=== PATIENT | male | born 1955 | race Caucasian/White ===

== ENCOUNTER 2018-10-08 11:26 | Inpatient (IN) | payer MEDICAID, OTHER ==
[~2018-10-08] VITALS: Ht 175.3 cm; Wt 58.8 kg
[~2018-10-08 11:26] MED LIST: ALBU8HFA4 IH; BECL8.7A7 IH; RISP2 PO
[2018-10-08] MEDS ORDERED: SODIUM CHLORIDE 0.9% 1,000 ML IV ONE (12:00)
[2018-10-08 12:13] LABS: BASOPHILS % (AUTO) 2.4 % (0.0-2.0); EOSINOPHILS % (AUTO) 3.3 % (1.0-6.0); HEMATOCRIT 30.3 % (41-53); HEMOGLOBIN 9.3 g/dL (13.5-17.5); LYMPHOCYTES # (AUTO) 0.8 K/uL (1.0-4.8); LYMPHOCYTES % (AUTO) 17.7 % (22.0-44.0); MEAN CORPUSCULAR HGB CONC 30.6 G/dL (31.0-37.0); MEAN CORPUSCULAR VOLUME 75 fL (80-100); MONOCYTES # (AUTO) 0.4 K/uL (0.1-1.0); MONOCYTES % (AUTO) 8.5 % (2.0-9.0); NEUTROPHILS # (AUTO) 3.2 K/uL (1.8-7.7); NEUTROPHILS % (AUTO) 68.1 % (40.0-70.0); PLATELET COUNT (AUTO) 391 K/uL (150-450); RED BLOOD CELL COUNT(AUTO) 4.02 MIL/uL (4.50-5.90); RED CELL DISTRIBUTION WIDTH 32.9 % (11.5-14.5)
[2018-10-08 12:24] LABS: ANION GAP 11 mmol/L (8-16); CALCIUM, TOTAL 8.6 mg/dL (8.8-10.5); CARBON DIOXIDE 24 mmol/L (22-29); CHLORIDE 103 mmol/L (98-107); CREATININE 0.69 mg/dL (0.60-1.30); GLOMERULAR FILTR. RATE CALC > 60 mL/min (>60); GLUCOSE,RANDOM 98 mg/dL (70-110); POTASSIUM 3.6 mmol/L (3.5-5.1); SODIUM SERUM 138 mmol/L (136-145); UREA NITROGEN, BLOOD 13 mg/dL (7-18)
[2018-10-08 13:01] LABS: PLATELET MORPHOLOGY COMMENT LARGE PLTS PRESENT
[2018-10-08] MEDS ORDERED: PANTOPRAZOLE SODIUM 40 MG/VIAL IVP ONE (13:30)
[2018-10-08 13:45] LABS: ALANINE AMINOTRANSFERASE 46 U/L (12-78); ALBUMIN 2.8 g/dL (3.4-5.0); ALKALINE PHOSPHATASE 82 U/L (46-116); ASPARTATE AMINOTRANSFERASE 59 U/L (15-37); BILIRUBIN,TOTAL 0.3 mg/dL (0.1-1.0); TOTAL PROTEIN, SERUM 7.3 g/dL (6.4-8.2)
[2018-10-08 13:45] LABS: PROTHROMBIN TIME 10.4 SEC (9.4-11.6)
[2018-10-08] MEDS ORDERED: MORPHINE SULFATE 2 MG/ML SYRINGE IVP PRN (13:45)
[2018-10-08] MEDS ORDERED: MAGNESIUM HYDROXIDE SUSPENSION 30 ML UDCUP PO PRN (13:45)
[2018-10-08] MEDS ORDERED: MAGNESIUM SULFATE 2 GM, MVI, ADULT NO.1 WITH VIT K 10 ML, THIAMINE HCL 100 MG, FOLIC AC... IV ONE ×5 (13:45)
[2018-10-08] MEDS ORDERED: HYDROCODONE/ACETAMINOPHEN 5-325 MG TABLET PO PRN (13:45)
[2018-10-08] MEDS ORDERED: ALBUTEROL SULFATE 2.5 MG/0.5 ML NEB SOLUTION NEB PRN (13:45)
[2018-10-08] MEDS ORDERED: ZOLPIDEM TARTRATE 5 MG TABLET PO PRN (13:45)
[2018-10-08] MEDS ORDERED: ONDANSETRON HCL 4 MG/2 ML VIAL IVP PRN (13:45)
[2018-10-08] MEDS ORDERED: ACETAMINOPHEN 325 MG TABLET PO PRN (13:45)
[2018-10-08] MEDS ORDERED: BISACODYL 10 MG RECTAL RECTAL SUPPOSITORY PR PRN (13:45)
[2018-10-08] MEDS: PANTOPRAZOLE SODIUM 80 MG in SODIUM CHLORIDE 0.9% 100 ML IV SCH (14:19)
[2018-10-08] MEDS: OCTREOTIDE ACETATE 500 MCG in DEXTROSE 5%-WATER 97.5 ML IV SCH (14:19)
[2018-10-08 15:39] VITALS: BP 139/85
[2018-10-08] MEDS ORDERED: PNEUMOCOCCAL VACCINE POLYVALENT 0.5 ML VIAL [PPSV23] IM ONE (17:45)
[2018-10-08 19:22] VITALS: BP 135/78
[2018-10-08 19:48] LABS: APPEARANCE,URINE CLEAR (CLEAR); BILIRUBIN,URINE NEGATIVE (NEGATIVE); GLUCOSE, URINE (UA) NEGATIVE (NEGATIVE); KETONES,URINE NEGATIVE (NEGATIVE); LEUKOCYTE ESTERASE ,URINE NEGATIVE (NEGATIVE); NITRATE,URINE NEGATIVE (NEGATIVE); OCCULT BLOOD,URINE NEGATIVE (NEGATIVE); PH,URINE 5.5 (5.0-8.0); PROTEIN,URINE NEGATIVE (NEGATIVE); UROBILINOGEN,URINE 0.2 mg/dL (<=1.0)
[2018-10-08 19:53] LABS: AMPHET/METH SCREEN,URINE POSITIVE (NEGATIVE); BARBITURATE SCREEN, URINE NEGATIVE (NEGATIVE); BENZODIAZEPINES SCREEN,URINE NEGATIVE (NEGATIVE); CANNABINOID SCREEN,URINE NEGATIVE (NEGATIVE); COCAINE SCREEN,URINE NEGATIVE (NEGATIVE); METHADONE SCREEN, URINE NEGATIVE (NEGATIVE); OPIATE SCREEN,URINE NEGATIVE (NEGATIVE); PHENCYCLIDINE SCREEN,URINE NEGATIVE (NEGATIVE)
[2018-10-08 20:12] LABS: BACTERIA,URINE None Seen /HPF (None Seen); RBC,URINE None Seen /HPF (0-2); SQUAMOUS EPITHELIAL CELL,UR Rare /LPF (None Seen); WBC,URINE 0-2 /HPF (0-5)
[2018-10-08 23:20] VITALS: BP 130/75
[2018-10-09] MEDS: DOCUSATE SODIUM 100 MG CAPSULE PO SCH ×3 (00:13→20:52)
[2018-10-09] MEDS: PANTOPRAZOLE SODIUM 80 MG in SODIUM CHLORIDE 0.9% 100 ML IV SCH ×2 (00:13→08:33)
[2018-10-09] MEDS: OCTREOTIDE ACETATE 500 MCG in DEXTROSE 5%-WATER 97.5 ML IV SCH ×2 (00:13→10:14)
[2018-10-09 04:17] VITALS: BP 147/85
[2018-10-09 06:35] LABS: BASOPHILS % (AUTO) 2.2 % (0.0-2.0); HEMATOCRIT 31.5 % (41-53); HEMOGLOBIN 9.8 g/dL (13.5-17.5); LYMPHOCYTES # (AUTO) 1.3 K/uL (1.0-4.8); LYMPHOCYTES % (AUTO) 25.2 % (22.0-44.0); MEAN CORPUSCULAR HEMOGLOBIN 23.5 pg (26.0-34.0); MEAN CORPUSCULAR VOLUME 76 fL (80-100); MONOCYTES # (AUTO) 0.6 K/uL (0.1-1.0); MONOCYTES % (AUTO) 12.8 % (2.0-9.0); NEUTROPHILS # (AUTO) 2.2 K/uL (1.8-7.7); NEUTROPHILS % (AUTO) 43.9 % (40.0-70.0); PLATELET COUNT (AUTO) 446 K/uL (150-450); RED BLOOD CELL COUNT(AUTO) 4.16 MIL/uL (4.50-5.90); RED CELL DISTRIBUTION WIDTH 32.5 % (11.5-14.5)
[2018-10-09 06:47] LABS: EOSINOPHILS % (AUTO) 15.9 % (1.0-6.0)
[2018-10-09 06:51] LABS: ANION GAP 8 mmol/L (8-16); CALCIUM, TOTAL 8.5 mg/dL (8.8-10.5); CARBON DIOXIDE 27 mmol/L (22-29); CHLORIDE 103 mmol/L (98-107); CREATININE 0.71 mg/dL (0.60-1.30); GLOMERULAR FILTR. RATE CALC > 60 mL/min (>60); GLUCOSE,RANDOM 77 mg/dL (70-110); SODIUM SERUM 138 mmol/L (136-145); UREA NITROGEN, BLOOD 8 mg/dL (7-18)
[2018-10-09 08:13] VITALS: BP 147/76
[2018-10-09] MEDS ORDERED: PANTOPRAZOLE SODIUM 40 MG DR TABLET PO SCH (09:00)
[2018-10-09] MEDS: FLUTICASONE/VILANTEROL 200-25 MCG/INH INHALER [14] IH SCH (10:16)
[2018-10-09 11:04] VITALS: BP 153/90
[2018-10-09] MEDS ORDERED: SODIUM CHLORIDE 0.9% 1,000 ML IV ONE (12:30)
[2018-10-09 15:46] VITALS: BP 142/96
[2018-10-09 20:32] VITALS: BP 140/79
[2018-10-09] MEDS ORDERED: PROPOFOL 1% 20 ML VIAL IVP ONE (22:42)
[2018-10-09] MEDS ORDERED: LIDOCAINE/PF 2% 5 ML VIAL IM ONE (22:42)
[2018-10-09 23:55] VITALS: BP 126/72
[2018-10-10] MEDS: PANTOPRAZOLE SODIUM 80 MG in SODIUM CHLORIDE 0.9% 100 ML IV SCH (04:59)
[2018-10-10] MEDS: OCTREOTIDE ACETATE 500 MCG in DEXTROSE 5%-WATER 97.5 ML IV SCH (05:00)
[2018-10-10 05:26] VITALS: BP 145/87
[2018-10-10 07:14] LABS: EOSINOPHILS % (AUTO) 8.8 % (1.0-6.0); HEMATOCRIT 31.4 % (41-53); HEMOGLOBIN 9.9 g/dL (13.5-17.5); LYMPHOCYTES # (AUTO) 0.9 K/uL (1.0-4.8); LYMPHOCYTES % (AUTO) 18.8 % (22.0-44.0); MEAN CORPUSCULAR HEMOGLOBIN 23.8 pg (26.0-34.0); MEAN CORPUSCULAR HGB CONC 31.6 G/dL (31.0-37.0); MEAN CORPUSCULAR VOLUME 75 fL (80-100); MONOCYTES # (AUTO) 0.6 K/uL (0.1-1.0); MONOCYTES % (AUTO) 12.3 % (2.0-9.0); NEUTROPHILS # (AUTO) 2.8 K/uL (1.8-7.7); NEUTROPHILS % (AUTO) 58.1 % (40.0-70.0); PLATELET COUNT (AUTO) 524 K/uL (150-450); RED BLOOD CELL COUNT(AUTO) 4.17 MIL/uL (4.50-5.90); RED CELL DISTRIBUTION WIDTH 32.8 % (11.5-14.5)
[2018-10-10 07:38] LABS: ANION GAP 8 mmol/L (8-16); CALCIUM, TOTAL 8.4 mg/dL (8.8-10.5); CARBON DIOXIDE 26 mmol/L (22-29); CHLORIDE 103 mmol/L (98-107); CREATININE 0.66 mg/dL (0.60-1.30); GLOMERULAR FILTR. RATE CALC > 60 mL/min (>60); GLUCOSE,RANDOM 85 mg/dL (70-110); POTASSIUM 3.5 mmol/L (3.5-5.1); SODIUM SERUM 137 mmol/L (136-145); UREA NITROGEN, BLOOD 7 mg/dL (7-18)
[2018-10-10 08:34] VITALS: BP 144/88
[2018-10-10] MEDS: FLUTICASONE/VILANTEROL 200-25 MCG/INH INHALER [14] IH SCH (09:41)
[2018-10-10] MEDS: DOCUSATE SODIUM 100 MG CAPSULE PO SCH ×2 (09:41→21:29)
[2018-10-10 12:27] VITALS: BP 138/83
[2018-10-10] MEDS ORDERED: PANT40TA25 PO (12:54)
[2018-10-10 16:09] VITALS: BP 132/76
[2018-10-10 17:00] VITALS: BP 124/76
[2018-10-10 20:55] VITALS: BP 157/95
[2018-10-11] VITALS (7 sets, daily range): BP systolic 123–143; BP diastolic 71–96
[2018-10-11 06:47] LABS: BASOPHILS % (AUTO) 1.8 % (0.0-2.0); EOSINOPHILS % (AUTO) 8.9 % (1.0-6.0); HEMATOCRIT 32.1 % (41-53); HEMOGLOBIN 10.1 g/dL (13.5-17.5); LYMPHOCYTES # (AUTO) 1.1 K/uL (1.0-4.8); LYMPHOCYTES % (AUTO) 24.2 % (22.0-44.0); MEAN CORPUSCULAR HEMOGLOBIN 23.6 pg (26.0-34.0); MEAN CORPUSCULAR HGB CONC 31.4 G/dL (31.0-37.0); MEAN CORPUSCULAR VOLUME 75 fL (80-100); MONOCYTES # (AUTO) 0.7 K/uL (0.1-1.0); MONOCYTES % (AUTO) 14.3 % (2.0-9.0); NEUTROPHILS # (AUTO) 2.4 K/uL (1.8-7.7); NEUTROPHILS % (AUTO) 50.8 % (40.0-70.0); PLATELET COUNT (AUTO) 556 K/uL (150-450); RED BLOOD CELL COUNT(AUTO) 4.27 MIL/uL (4.50-5.90); RED CELL DISTRIBUTION WIDTH 32.9 % (11.5-14.5)
[2018-10-11 07:17] LABS: ANION GAP 7 mmol/L (8-16); CALCIUM, TOTAL 8.9 mg/dL (8.8-10.5); CARBON DIOXIDE 29 mmol/L (22-29); CHLORIDE 101 mmol/L (98-107); CREATININE 0.71 mg/dL (0.60-1.30); GLOMERULAR FILTR. RATE CALC > 60 mL/min (>60); GLUCOSE,RANDOM 83 mg/dL (70-110); POTASSIUM 3.9 mmol/L (3.5-5.1); SODIUM SERUM 137 mmol/L (136-145); UREA NITROGEN, BLOOD 8 mg/dL (7-18)
[2018-10-11] MEDS: FLUTICASONE/VILANTEROL 200-25 MCG/INH INHALER [14] IH SCH (08:38)
[2018-10-11] MEDS: DOCUSATE SODIUM 100 MG CAPSULE PO SCH ×2 (08:38→21:00)
[2018-10-12 04:29] VITALS: BP 138/86
[2018-10-12 08:03] VITALS: BP 131/88
[2018-10-12] MEDS: DOCUSATE SODIUM 100 MG CAPSULE PO SCH (08:21)
[2018-10-12] MEDS: FLUTICASONE/VILANTEROL 200-25 MCG/INH INHALER [14] IH SCH (08:22)
== END 2018-10-12 12:30 | disposition home or self-care (01) | DRG 241 ==
LOC: EMS 11:28 → 5S 15:25 → 4E 16:19
PROVIDERS: ADMIT Internal Medicine; ATTEND Internal Medicine
PROC: 0DJ08ZZ Inspection of Upper Intestinal Tract, Via Natural or Artificial Opening Endoscopic (ICD-10-PCS; principal; 2018-10-09 14:00)
DX: K29.71 Gastritis, unspecified, with bleeding (principal); E43 Unspecified severe protein-calorie malnutrition; G92 Toxic encephalopathy; D64.9 Anemia, unspecified; J45.909 Unspecified asthma, uncomplicated; F17.210 Nicotine dependence, cigarettes, uncomplicated; F20.9 Schizophrenia, unspecified; J44.9 Chronic obstructive pulmonary disease, unspecified; Z68.1 Body mass index [BMI] 19.9 or less, adult; Z28.21 Immunization not carried out because of patient refusal
CPT/HCPCS: 82270; 82271; 87081; 93005; C9113; G0378; G0480; J2354; J2704; J3411; J3475; J3490; J7030; J7050; J7060

== ENCOUNTER 2019-05-25 18:10 | Emergency (ER) | payer OTHER ==
[~2019-05-25] VITALS: Ht 177.8 cm; Wt 70.2 kg
[~2019-05-25 18:10] MED LIST changes: -ALBU8HFA4 IH; -BECL8.7A7 IH; +PANT40TA25 PO; -RISP2 PO
[2019-05-25 18:47] LABS: HEMATOCRIT 32.1 % (41-53); HEMOGLOBIN 10.1 g/dL (13.5-17.5); MEAN CORPUSCULAR HEMOGLOBIN 25.4 pg (26.0-34.0); MEAN CORPUSCULAR HGB CONC 31.4 G/dL (31.0-37.0); MEAN CORPUSCULAR VOLUME 81 fL (80-100); PLATELET COUNT (AUTO) 393 K/uL (150-450); RED BLOOD CELL COUNT(AUTO) 3.96 MIL/uL (4.50-5.90); RED CELL DISTRIBUTION WIDTH 15.6 % (11.5-14.5)
[2019-05-25 18:59] LABS: BAND NEUTROPHILS % (MANUAL) 2 % (0-5); EOSINOPHILS % (MANUAL) 5 % (1-6); LYMPHOCYTES % (MANUAL) 11 % (22-44); MONOCYTES % (MANUAL) 3 % (2-9); REACTIVE LYMPHOCYTES 4 % (0-0); SEGMENTED NEUTROPHILS % 75 % (40-70)
[2019-05-25 19:00] LABS: CALCIUM, TOTAL 8.8 mg/dL (8.8-10.5); CREATININE 1.46 mg/dL (0.60-1.30); PLATELET MORPHOLOGY COMMENT NORMAL; POTASSIUM 3.6 mmol/L (3.5-5.1)
[2019-05-25 19:04] LABS: ALBUMIN 3.1 g/dL (3.4-5.0); BILIRUBIN,TOTAL 0.2 mg/dL (0.1-1.0); TOTAL PROTEIN, SERUM 7.3 g/dL (6.4-8.2)
[2019-05-25 19:42] VITALS: BP 95/60
== END 2019-05-25 20:20 | disposition home or self-care (01) ==
LOC: EMS 18:10
DX: F10.129 Alcohol abuse with intoxication, unspecified (principal); I25.2 Old myocardial infarction; F20.9 Schizophrenia, unspecified; F17.210 Nicotine dependence, cigarettes, uncomplicated; F19.90 Other psychoactive substance use, unspecified, uncomplicated; Y90.7 Blood alcohol level of 200-239 mg/100 ml
CPT/HCPCS: 36415; 80053; 85025; 93005; 99284; G0480